=== PATIENT | female | born 2000 | race Caucasian/White ===

== ENCOUNTER → 2019-06-12 | Outpatient (CLI) | payer BC ==
[2019-06-12 16:05] VITALS: BMI 28.5
== END ==
LOC: DBWHC3 12:45
PROVIDERS: ATTEND Family Medicine
DX: K90.0 Celiac disease (principal)
CPT/HCPCS: 97802

== ENCOUNTER → 2019-10-18 | Outpatient (CLI) | payer BC ==
--- NOTE | 2019-10-18 15:30 | US ---
EXAMINATION TYPE: US pelvic complete DATE OF EXAM: 10/18/2019 COMPARISON: NONE CLINICAL HISTORY: N92.0 Excessive and frequent menstruation with reg. Patient states starting nuvarin g and having irregular menses. TECHNIQUE: Transabdominal (TA). Transabdominal sonographic images of the pelvis were acquired. Date of LMP: July 2019, G0 EXAM MEASUREMENTS: Uterus: 7.4 x 5.1 x 3.7 cm Endometrial Stripe: 0.4 cm Right Ovary: 3.1 x 1.5 x 1.5 cm Left Ovary: 3.3 x 1.9 x 1.5 cm 1. Uterus: Anteverted wnl 2. Endometrium: wnl 3. Right Ovary: follicles seen 4. Left Ovary: follicles seen 5. Bilateral Adnexa: no free fluid 6. Posterior cul-de-sac: no free fluid IMPRESSION: Unremarkable pelvic ultrasound. Physiologic follicular changes of the ovaries. No endomet rial thickening.
== END | disposition home or self-care (01) ==
LOC: RADUSWWP 14:55
PROVIDERS: ATTEND Family Medicine
DX: N92.0 Excessive and frequent menstruation with regular cycle (principal)
CPT/HCPCS: 76856

== ENCOUNTER → 2020-04-05 | Outpatient (CLI) | payer BC ==
--- NOTE | 2020-04-05 09:40 | US ---
EXAMINATION TYPE: US abdomen comp/pelvis limited DATE OF EXAM: 04/05/2020 COMPARISON: NONE CLINICAL HISTORY: R10.9 ABD PAIN. Generalized pain. NPO EXAM MEASUREMENTS: Liver Length: 14.5 cm Gallbladder Wall: 0.2 cm CBD: 0.4 cm Spleen: 10.8 cm Right Kidney: 11.3 x 4.7 cm Left Kidney: 11.6 x 3.8 cm Pancreas: Tail obscured by bowel gas Liver: wnl Gallbladder: wnl CBD: wnl Spleen: wnl Right Kidney: No hydronephrosis or masses seen Left Kidney: No hydronephrosis or masses seen Upper IVC: wnl Abd Aorta: No AAA visualized Bladder: Distended, anechoic Bilateral Jets Seen IMPRESSION: 1. Normal abdomen ultrasound
== END | disposition home or self-care (01) ==
LOC: RADUSWWP 08:49
PROVIDERS: ATTEND Family Medicine
DX: R10.9 Unspecified abdominal pain (principal)
CPT/HCPCS: 76700; 76857

== ENCOUNTER 2021-11-11 11:13 | Day surgery (SDC) | payer BC ==
[2021-11-07 11:35] VITALS: BMI 31.7
[~2021-11-11 11:13] MED LIST: LACTATED RINGERS 1,000 ML IV SCH; LIDOCAINE 1% (10MG/ML) FOR IV START INTRADERMA PRN
[2021-11-11 11:44] VITALS: RESP 20; TEMP 97.8
[2021-11-11] MEDS ORDERED: fentaNYL (PF) 50 MCG/ML 2 ML AMP ONE (11:47)
[2021-11-11] MEDS ORDERED: MIDAZOLAM 2 MG/2 ML VIAL ONE (11:47)
[2021-11-11] MEDS ORDERED: PROPOFOL 10 MG/ML 20 ML VIAL IV ONE (11:47)
--- NOTE | 2021-11-11 11:56 | P.PCN ---
Date of Procedure: 11/11/21 Procedure(s) Performed: BRIEF HISTORY: Patient is a 20-year-old, pleasant, white female scheduled for an upper endoscopy as a part of evaluation of positive serology for celiac disease and low iron.. She denies any GI symptoms. PROCEDURE PERFORMED: Esophagogastroduodenoscopy. With biopsy PREOPERATIVE DIAGNOSIS: Positive celiac serology. IV sedation per anesthesia. PROCEDURE: After informed consent was obtained, the patient was brought into the endoscopy unit. IV sedation was administered by Anesthesia under continuous monitoring. Initially the Olympus GIF-140 video endoscope was inserted into the mouth. Esophagus intubated without any difficulty. It was gradually advanced into the stomach and duodenum and carefully examined. The bulb and the second part of the duodenum appeared normal. Biopsies were done from the duodenum to evaluate for celiac disease. The scope at this time was withdrawn to the stomach, adequately insufflated with air, and upon careful examination, mucosa of the antrum, had mild patchy areas of erythema which was biopsied. The body, cardia and the fundus appeared normal. The scope was then withdrawn into the esophagus. The GE junction was located at 39 cm from the incisors. The esophagus appeared normal. There were no erosions or ulcerations seen and the patient tolerated the procedure well. IMPRESSION: 1. Minimal antral gastritis 2. Normal-appearing duodenum status post multiple biopsies to rule out celiac disease. RECOMMENDATIONS: The findings of this examination were discussed with the patient as well as her family. She was advised to follow with the biopsy results and she'll be seen in office in 2 weeks
[2021-11-11 12:14] VITALS: BP 121/65; PULSE 58
== END 2021-11-11 12:34 | disposition home or self-care (01) ==
LOC: ORWHC2ENDO 11:13
PROVIDERS: ATTEND Internal Medicine Gastroenterology
DX: K29.50 Unspecified chronic gastritis without bleeding (principal); K90.0 Celiac disease; J45.909 Unspecified asthma, uncomplicated; Z79.3 Long term (current) use of hormonal contraceptives
CPT/HCPCS: 81025; 88305; 43239; J2250; J3010; J2704

== ENCOUNTER → 2023-07-26 | Outpatient (CLI) | payer BC ==
--- NOTE | 2023-07-27 07:12 | CA ---
Transthoracic Echo Report Name: Loreta Wilkes Age: 22 Gender: F : 2000 Exam Date: 07/26/2023 14:25 Exam Location: [place] [facility] Ht (in): 69 Wt (lb): 230 Ordering Physician: Qasim Trivedi MD Attending/Referring Phys: Shikha GRIFFIN Bedspread Inspector Aviva Hsu RDCS Procedure CPT: Indications: R07.89 chest pain Cardiac Hx: Technical Quality: Fair Contrast 1: Total Dose (mL): Contrast 2: Total Dose (mL): MEASUREMENTS (Male / Female) Normal Values 2D ECHO LV Diastolic Diameter PLAX 4.7 cm 4.2 - 5.9 / 3.9 - 5.3 cm LV Systolic Diameter PLAX 2.7 cm IVS Diastolic Thickness 1.0 cm 0.6 - 1.0 / 0.6 - 0.9 cm LVPW Diastolic Thickness 1.2 cm 0.6 - 1.0 / 0.6 - 0.9 cm LV Relative Wall Thickness 0.5 RV Internal Dim ED PLAX 2.6 cm LA Volume 43.4 cm??? 18 - 58 / 22 - 52 cm??? LA Volume Index 19.0 cm???/m??? 16 - 28 cm???/m??? M-MODE Aortic Root Diameter MM 2.9 cm LA Systolic Diameter MM 4.0 cm LA Ao Ratio MM 1.4 AV Cusp Separation MM 1.8 cm DOPPLER AV Peak Velocity 144.6 cm/s AV Peak Gradient 8.4 mmHg AV Mean Velocity 107.7 cm/s AV Mean Gradient 5.2 mmHg AV Velocity Time Integral 26.2 cm LVOT Peak Velocity 135.2 cm/s LVOT Peak Gradient 7.3 mmHg LVOT Velocity Time Integral 25.5 cm MV Area PHT 3.5 cm??? Mitral E Point Velocity 104.5 cm/s Mitral A Point Velocity 84.1 cm/s Mitral E to A Ratio 1.2 MV Deceleration Time 215.2 ms MV E' Velocity 5.3 cm/s Mitral E to MV E' Ratio 19.6 FINDINGS Left Ventricle Normal Left ventricular size, wall thickness, systolic function with no obvious regional wall motion abnormalities. Normal Left ventricular diastolic filling pattern. Left ventricular ejection fraction is estimated at 55-60 %. Right Ventricle Normal right ventricular size and function. Right Atrium Normal right atrial size. Left Atrium Normal left atrial size. Mitral Valve Structurally normal mitral valve. No mitral stenosis, regurgitation or prolapse. Aortic Valve No aortic valve stenosis or regurgitation. Tricuspid Valve Structurally normal tricuspid valve. Trace to mild tricuspid regurgitation. Pulmonic Valve Pulmonic valve not well visualized. Pericardium No pericardial effusion. Aorta Normal size aortic root and proximal ascending aorta. CONCLUSIONS 1. Normal left ventricular size and systolic function 2. Trace to mild tricuspid regurgitation Previewed by: Dr. Kailash Patino MD (Electronically Signed) Final Date: 27 July 2023 07:11
== END | disposition home or self-care (01) ==
LOC: RADECHMAIN 13:58
PROVIDERS: ATTEND Family Medicine
DX: I34.0 Nonrheumatic mitral (valve) insufficiency (principal); R07.89 Other chest pain
CPT/HCPCS: 93306

== ENCOUNTER 2024-08-23 17:05 | Outpatient (CLI) | payer BC ==
[2024-08-23 18:00] LABS: Appearance,Urine Clear (Clear); Bacteria,Urine Many /hpf; Bilirubin,Urine Negative (Negative); Blood,Urine Negative (Negative); Color,Urine Colorless; Glucose,Urine (UA) Negative (Negative); Ketones,Urine 1+ (Negative); Leukocyte Esterase,Urine Small (Negative); Mucus,Urine Rare /hpf; Nitrite,Urine Negative (Negative); Protein,Urine Negative (Negative); RBC,Urine 2 /hpf (0-5); Squamous Epithelial Cell,Urine 1 /hpf (0-4); Urobilinogen,Urine <2.0 mg/dL (<2.0); WBC,Urine 4 /hpf (0-5)
[2024-08-23 18:07] LABS: Creatinine,Urine Random 60.6 mg/dL; Protein/Creatinine Ratio,Urine 0.182
[2024-08-23 18:23] LABS: Basophils % (A) 0 %; Eosinophils # (A) 0.1 k/uL (0-0.7); Eosinophils % (A) 1 %; HCT 36.2 % (34.0-46.0); HGB 12.7 gm/dL (11.4-16.0); Lymphocytes # (A) 2.2 k/uL (1.0-4.8); Lymphocytes % (A) 17 %; MCV 85.9 fL (80.0-100.0); Mean Platelet Volume 8.7; Monocytes # (A) 0.6 k/uL (0-1.0); Monocytes % (A) 5 %; Neutrophils # (A) 9.7 k/uL (1.3-7.7); Neutrophils % (A) 75 %; Platelet Count 217 k/uL (150-450); RBC 4.22 m/uL (3.80-5.40); RDW 14.7 % (11.5-15.5); WBC 12.9 k/uL (3.8-10.6)
[2024-08-23 18:30] LABS: ALT 13 U/L (4-34); AST 14 U/L (14-36); African American GFR (CKD) >90 (>60 ml/min/1.73 sqM); Blood Urea Nitrogen 5 mg/dL (7-17); LDH 176 U/L (120-246); Non-African American GFR(CKD) >90 (>60 ml/min/1.73 sqM); Uric Acid 3.6 mg/dL (3.7-7.4)
[2024-08-23 19:51] VITALS: BP 167/83; PULSE 100; RESP 17; TEMP 99
--- NOTE | 2024-09-15 23:07 | P.MSEPDOC ---
Presenting Problems - Arrival Data Date of Arrival on Unit: 08/23/24 Time of Arrival on Unit: 17:05 Mode of Transport: Ambulatory - Complaint OB-Reason for Admission/Chief Complaint: PIH Comment: pt presents to triage with written orders from Dr. Ferreira for PIH workup, nst, and serial bp's Medical History - Information : 1 Para: 0 Term: 0 : 0 Abortions: Spontaneous or Elective: 0 Number of Living Children: 0 - Gestational Age Gestational Age by JENN (wks/days): 32 Weeks and 0 Days Review of Systems - Review of Systems Constitutional: No problems Breast: No problems ENT: No problems Cardiovascular: No problems Respiratory: No problems Gastrointestinal: No problems Genitourinary: No problems Musculoskeletal: No problems Neurological: No problems Skin: No problems Vital Signs - Temperature Temperature: 99.0 F Temperature Source: Temporal Artery Scan - Pulse Right Brachial Pulse Rate: 100 Pulse Assessment Method: Automatic Cuff - Respirations Respiratory Rate: 17 Oxygen Delivery Method: Room Air O2 Sat by Pulse Oximetry: 97 - Blood Pressure Right Arm Blood Pressure: 167/83 Blood Pressure Mean: 111 Blood Pressure Source: Automatic Cuff Medical Screen Scoring - Assessment - Baby A Baseline FHR: 145 Heart Rate - NICHD Category: Category I (Normal) NST: Reactive Physician Notification - Notification Comment Comment: [facility] labs obtained, all within normal, ua sent for culture, bp's down to 118/71 by discharge, reactive nst, script for labetolol 100 mg bid [facility], pt has another appt in office on 09/06 Maternal Triage Index - Maternal Triage Index Presenting for scheduled procedure w/no complaint: No - Stat/Priority 1 Stat Priority 1: No - Urgent/Priority 2 Urgent Priority 2: Yes Provider Notified: Liliana Ferreira Provider Notified Time: 18:30 Criteria Met for Priority 2: pt presents to triage with written orders from Dr. Ferreira for PIH workup, nst, and serial bp's due to elevated bp's in office Disposition - Disposition OB Disposition: Triage, Discharge to home, Written follow up instructions reviewed Discharge Date: 08/23/24 Discharge Time: 18:50 I agree with the RN Medical Screening Exam: Yes Case reviewed; plan agreed upon as documented in EMR&OBIX.: Yes Comments: I have neither seen nor examined this patient Diagnosis: GESTATIONAL HTN W/O SIGNIFICANT PROTEINURIA, THIRD TRIMESTER
== END 2024-08-23 18:50 | disposition home or self-care (01) ==
LOC: FBPOP 17:05
PROVIDERS: ATTEND Obstetrics & Gynecology
DX: O13.3 Gestational [pregnancy-induced] hypertension without significant proteinuria, third trimester (principal); Z3A.32 32 weeks gestation of pregnancy; Z91.018 Allergy to other foods; Z88.8 Allergy status to other drugs, medicaments and biological substances
CPT/HCPCS: 36415; 59025; 81001; 82565; 82570; 83615; 84156; 84450; 84460; 84520; 84550; 85025; 87086

== ENCOUNTER 2024-09-08 13:53 | Outpatient (CLI) | payer BC ==
[2024-09-08 14:30] LABS: Appearance,Urine Clear (Clear); Basophils % (A) 0 %; Bilirubin,Urine Negative (Negative); Blood,Urine Negative (Negative); Color,Urine Colorless; Eosinophils # (A) 0.2 k/uL (0-0.7); Eosinophils % (A) 2 %; Glucose,Urine (UA) Negative (Negative); HCT 38.7 % (34.0-46.0); Ketones,Urine Negative (Negative); Leukocyte Esterase,Urine Negative (Negative); Lymphocytes # (A) 1.6 k/uL (1.0-4.8); Lymphocytes % (A) 16 %; MCH 29.2 pg (25.0-35.0); MCHC 33.6 g/dL (31.0-37.0); MCV 86.9 fL (80.0-100.0); Mean Platelet Volume 8.5; Monocytes # (A) 0.4 k/uL (0-1.0); Monocytes % (A) 4 %; Neutrophils # (A) 7.6 k/uL (1.3-7.7); Neutrophils % (A) 76 %; Nitrite,Urine Negative (Negative); PH, Urine 6.5 (5.0-8.0); Platelet Count 245 k/uL (150-450); Protein,Urine Negative (Negative); RBC 4.45 m/uL (3.80-5.40); RDW 14.5 % (11.5-15.5); Specific Gravity,Urine 1.009 (1.001-1.035); Urobilinogen,Urine <2.0 mg/dL (<2.0)
[2024-09-08 14:54] LABS: ALT 14 U/L (4-34); African American GFR (CKD) >90 (>60 ml/min/1.73 sqM); Blood Urea Nitrogen 7 mg/dL (7-17); Non-African American GFR(CKD) >90 (>60 ml/min/1.73 sqM); Uric Acid 3.9 mg/dL (3.7-7.4)
[2024-09-08 14:55] LABS: Protein/Creatinine Ratio,Urine 0.196
[2024-09-08 15:11] LABS: AST 35 U/L (14-36)
[2024-09-08 15:12] LABS: LDH 292 U/L (120-246)
[2024-09-08 15:42] VITALS: BP 135/74; PULSE 109; RESP 14; TEMP 98.1
--- NOTE | 2024-09-15 23:22 | P.MSEPDOC ---
Presenting Problems - Arrival Data Date of Arrival on Unit: 09/08/24 Time of Arrival on Unit: 13:53 Mode of Transport: Ambulatory - Complaint OB-Reason for Admission/Chief Complaint: PIH Medical History - Information : 1 Para: 0 Term: 0 : 0 Abortions: Spontaneous or Elective: 0 Number of Living Children: 0 - Gestational Age Gestational Age by JENN (wks/days): 34 Weeks and 2 Days Review of Systems - Review of Systems Constitutional: No problems Breast: No problems ENT: No problems Cardiovascular: No problems Respiratory: No problems Gastrointestinal: No problems Genitourinary: No problems Musculoskeletal: No problems Neurological: No problems Skin: No problems Vital Signs - Temperature Temperature: 98.1 F Temperature Source: Temporal Artery Scan - Pulse Right Brachial Pulse Rate: 109 Pulse Assessment Method: Automatic Cuff - Respirations Respiratory Rate: 14 Oxygen Delivery Method: Room Air - Blood Pressure Right Arm Blood Pressure: 135/74 Blood Pressure Mean: 94 Blood Pressure Source: Automatic Cuff Medical Screen Scoring - Assessment - Baby A Baseline FHR: 140 Heart Rate - NICHD Category: Category I (Normal) NST: Reactive Physician Notification - Physician Notified Physician Notified Date: 09/08/24 Physician Notified Time: 15:10 Physician: Liliana Ferreira Order Received: Yes - Notification Comment Comment: d/c home Maternal Triage Index - Maternal Triage Index Presenting for scheduled procedure w/no complaint: No - Stat/Priority 1 Stat Priority 1: No - Urgent/Priority 2 Urgent Priority 2: No - Prompt/Priority 3 Prompt Priority 3: No - Non-Urgent/Priority 4 Non-Urgent Priority 4: Yes Criteria Met for Priority 4: discomfort of Disposition - Disposition OB Disposition: Discharge to home Discharge Date: 09/08/24 Discharge Time: 15:20 I agree with the RN Medical Screening Exam: Yes Physician's MSE Comment: I have neither seen nor examined this patient Case reviewed; plan agreed upon as documented in EMR&OBIX.: Yes Diagnosis: OTHER SPECIFIED COMPLICATIONS OF LABOR AND DELIVERY
== END 2024-09-08 15:21 | disposition home or self-care (01) ==
LOC: FBPOP 13:53
PROVIDERS: ATTEND Obstetrics & Gynecology
DX: O13.3 Gestational [pregnancy-induced] hypertension without significant proteinuria, third trimester (principal); Z3A.34 34 weeks gestation of pregnancy; Z91.048 Other nonmedicinal substance allergy status; Z88.8 Allergy status to other drugs, medicaments and biological substances
CPT/HCPCS: 36415; 59025; 81003; 82565; 82570; 83615; 84156; 84450; 84460; 84520; 84550; 85025; 99215

== ENCOUNTER 2024-10-11 15:50 | Inpatient (IN) | payer BC ==
--- NOTE | 2024-10-11 16:37 | P.HPOB ---
History of Present Illness H&P Date: 10/11/24 Chief Complaint: medical induction of labor Ms. Rosenbaum is a 23 year old at 39 weeks gestation with EDC of 10/18/2024 who presents for medical induction of labor for chronic hypertension on 200mg of Labetalol BID. The patient also has a past medical history of mild intermittent asthma for which she rarely uses an inhaler. The fetus is estimated at 54%ile based on a 32 week growth US. surveillance has been reassuring. work-up: blood type O positive, antibody screen negatibe, rubella immune, VDRL non-reactive, HBsAg negative, HIV negative, gonorrhea negative, chlamydia negative, 1 hour GTT wnl, GBS negative. s/p flu and TDap vaccines. Past Medical History Past Medical History: Asthma, GERD/Reflux Additional Past Medical History / Comment(s): CELIAC DISEASE, anemia, History of Any Multi-Drug Resistant Organisms: None Reported Past Surgical History: No Surgical Hx Reported Past Anesthesia/Blood Transfusion Reactions: No Reported Reaction Smoking Status: Never smoker - Past Family History Mother Family Medical History: No Reported History Medications and Allergies Home Medications Medication Instructions Recorded Confirmed Type Aspirin [[place] Aspirin EC] 81 mg PO DAILY 09/08/24 10/11/24 History Labetalol [Trandate] 100 mg PO BID 09/08/24 10/11/24 History Vit No.179/Iron/Folic 1 each PO DAILY 09/08/24 10/11/24 History [ Tablet] Allergies Allergy/AdvReac Type Severity Reaction Status Date / Time adhesive tape AdvReac Rash/Hives Verified 10/11/24 16:22 ferumoxytol [From Feraheme] AdvReac Cough Verified 10/11/24 16:22 gluten AdvReac Rash/Hives Verified 10/11/24 16:22 Exam Intake and Output 10/11/24 10/11/24 10/11/24 06:59 14:59 22:59 Other: Weight 135.171 kg Focused physical exam is performed. This is a healthy-appearing in no apparent distress. Breathing is non-labored. Abdomen is gravid and non-tender. Cervical exam is closed/long/high. Sterile speculum is used to place a cooks catheter. Extremities non-tender and non-edematous. heart tones are reactive and reassuring on NST. Assessment and Plan Assessment: 23 year old at 39 weeks gestation with cHTN presenting for medical induction Plan: Admit, clear liquid diet, cooks catheter for 12 hours with low dose pitocin, continuous EFM and tocometer.
[2024-10-11] MEDS: LACTATED RINGERS 1,000 ML IV SCH (17:30)
[2024-10-11] MEDS ORDERED: OXYTOCIN 10 UNIT/ML 1 ML VIAL IM PRN (17:39)
[2024-10-11] MEDS ORDERED: TERBUTALINE 1 MG/ML VIAL SQ PRN (17:39)
[2024-10-11] MEDS ORDERED: METHYLERGONOVINE 0.2 MG/ML 1 ML AMP IM PRN (17:39)
[2024-10-11] MEDS ORDERED: miSOPROStoL 200 MCG TAB RECTAL PRN (17:39)
[2024-10-11] MEDS ORDERED: miSOPROStoL 200 MCG TAB PO PRN (17:39)
[2024-10-11] MEDS ORDERED: TRANEXAMIC 1,000 MG/100ML-NACL 1,000 MG in EMPTY BAG 1 BAG IV PRN (17:39)
[2024-10-11] MEDS ORDERED: LIDOCAINE 0.5% (PF) 5 MG/ML (50 ML SDV) SQ PRN (17:39)
[2024-10-11] MEDS ORDERED: CARBOPROST TROMETHAMINE 250 MCG/ML 1 ML AMP IM PRN (17:39)
[2024-10-11] MEDS ORDERED: OXYTOCIN 30 UNITS/500 ML NS 30 UNIT in SALINE 1 500ML.BAG IV SCH (17:45)
[2024-10-11] MEDS: OXYTOCIN 30 UNITS/500 ML NS 30 UNIT in SALINE 1 500ML.BAG IV SCH (17:50)
[2024-10-11 18:24] LABS: Basophils % (A) 0 %; Eosinophils # (A) 0.1 k/uL (0-0.7); Eosinophils % (A) 1 %; HGB 12.4 gm/dL (11.4-16.0); Lymphocytes # (A) 1.6 k/uL (1.0-4.8); Lymphocytes % (A) 17 %; MCH 28.6 pg (25.0-35.0); MCHC 34.6 g/dL (31.0-37.0); MCV 82.9 fL (80.0-100.0); Mean Platelet Volume 9.1; Monocytes # (A) 0.5 k/uL (0-1.0); Monocytes % (A) 5 %; Neutrophils % (A) 74 %; Platelet Count 229 k/uL (150-450); RBC 4.34 m/uL (3.80-5.40); RDW 15.1 % (11.5-15.5); WBC 9.4 k/uL (3.8-10.6)
[2024-10-11 18:34] LABS: ALT 12 U/L (4-34); AST 17 U/L (14-36); African American GFR (CKD) >90 (>60 ml/min/1.73 sqM); Blood Urea Nitrogen 6 mg/dL (7-17); LDH 193 U/L (120-246); Non-African American GFR(CKD) >90 (>60 ml/min/1.73 sqM); Uric Acid 4.6 mg/dL (3.7-7.4)
[2024-10-11 18:39] LABS: Appearance,Urine Clear (Clear); Bacteria,Urine Rare /hpf; Bilirubin,Urine Negative (Negative); Blood,Urine Large (Negative); Color,Urine Yellow; Glucose,Urine (UA) Negative (Negative); Ketones,Urine Negative (Negative); Leukocyte Esterase,Urine Negative (Negative); Mucus,Urine Few /hpf; Nitrite,Urine Negative (Negative); Protein,Urine Trace (Negative); RBC,Urine >182 /hpf (0-5); Specific Gravity,Urine 1.024 (1.001-1.035); Squamous Epithelial Cell,Urine 3 /hpf (0-4); Urobilinogen,Urine <2.0 mg/dL (<2.0); WBC,Urine 2 /hpf (0-5)
[2024-10-11 18:43] LABS: Creatinine,Urine Random 180.1 mg/dL; Protein/Creatinine Ratio,Urine 0.089
[2024-10-12] MEDS: NALBUPHINE 10 MG/ML (10 ML MDV) IV PRN (09:33)
[2024-10-12] MEDS ORDERED: SODIUM CHLORIDE 0.9% 250 ML BAG ONE (10:40)
[2024-10-12] MEDS ORDERED: ROPIVACAINE 5 MG/ML 30 ML VIAL ONE (10:40)
[2024-10-12] MEDS ORDERED: fentaNYL (PF) 50 MCG/ML 5 ML AMP ONE (10:40)
[2024-10-12] MEDS ORDERED: CARBOPROST TROMETHAMINE 250 MCG/ML 1 ML AMP IM PRN (19:42)
[2024-10-12] MEDS ORDERED: miSOPROStoL 200 MCG TAB PO PRN (19:42)
[2024-10-12] MEDS ORDERED: TRANEXAMIC 1,000 MG/100ML-NACL 1,000 MG in EMPTY BAG 1 BAG IV PRN (19:42)
[2024-10-12] MEDS ORDERED: METHYLERGONOVINE 0.2 MG/ML 1 ML AMP IM PRN (19:42)
[2024-10-12] MEDS ORDERED: OXYTOCIN 10 UNIT/ML 1 ML VIAL IM PRN (19:42)
[2024-10-12] MEDS: CITRIC ACID-SODIUM CITRATE 15 ML CUP PO ONE (20:03)
[2024-10-12] MEDS: ceFAZolin 3 GM in SODIUM CHLORIDE 0.9% 100 ML IVPB ONE (20:09)
[2024-10-12] MEDS ORDERED: DEXAMETHASONE SOD PHOSPHATE 4 MG/ML 1 ML VIAL ONE (20:11)
[2024-10-12] MEDS ORDERED: OXYTOCIN 30 UNITS/500 ML NS BAG IV ONE (20:11)
[2024-10-12] MEDS ORDERED: MIDAZOLAM 2 MG/2 ML VIAL ONE (20:11)
[2024-10-12] MEDS ORDERED: LIDOCAINE HCL/PF 20 MG/ML 10 ML AMP ONE (20:11)
[2024-10-12] MEDS ORDERED: .MORPHINE SULFATE (INJ) 10 MG/ML SYRINGE ONE (20:11)
[2024-10-12] MEDS ORDERED: KETOROLAC 15 MG/ML 1 ML VIAL ONE (20:11)
[2024-10-12] MEDS ORDERED: ONDANSETRON 4 MG/2 ML VIAL ONE (20:11)
[2024-10-12] MEDS ORDERED: diphenhydrAMINE 25 MG CAP PO PRN (21:29)
[2024-10-12] MEDS ORDERED: diphenhydrAMINE 50 MG/ML 1 ML VIAL IVP PRN ×2 (21:29)
[2024-10-12] MEDS ORDERED: ZOLPIDEM 5 MG TAB PO PRN (21:29)
[2024-10-12] MEDS ORDERED: diphenhydrAMINE 50 MG CAP PO PRN (21:29)
[2024-10-12] MEDS ORDERED: ONDANSETRON 4 MG/2 ML VIAL IVP PRN (21:29)
[2024-10-12] MEDS ORDERED: SIMETHICONE 80 MG CHEWABLE PO PRN (21:29)
[2024-10-12] MEDS ORDERED: METOCLOPRAMIDE 5 MG/ML 2 ML VIAL IVP PRN (21:29)
[2024-10-12] MEDS ORDERED: NALOXONE 0.4 MG/ML 1 ML VIAL IV PRN (21:29)
--- NOTE | 2024-10-12 21:30 | P.OP ---
Date of Procedure: 10/12/24 Preoperative Diagnosis: 1. Term IUP at 39 weeks 2. Chronic Hypertension 3. Arrest of dilation 4. Category II heart tones Postoperative Diagnosis: 1. Term IUP at 39 weeks 2. Chronic Hypertension 3. Arrest of dilation 4. Category II heart tones 5. hemorrhage Procedure(s) Performed: Primary Lower Transverse Section Implants: None Anesthesia: epidural Surgeon: Liliana Ferreira Dross Skimmer #1: Cherry Tena Estimated Blood Loss (ml): 2,373 IV fluids (ml): 1,000 Urine output (ml): 300 (clear yellow) Pathology: none sent Condition: stable Disposition: floor Indications for Procedure: Ms. Rosenbaum is a 23 year old at 39 weeks gestation who presented for medical induction of labor for chronic hypertension on antihypertensives. A cooks catheter was inserted with low-dose oxytocin and fell out after approximately 9 hours. Pitocin was titrated per protocol and AROM was undertaken at 830 revealing clear amniotic fluid. The patient progressed to 6 centimeters. She then did not make any further cervical dilation over the next 8-9 hours. The fetus also had category II heart tones at times, which usually resolved with decreasing the pitocin or position changes. section was recommended for maternal and well-being. The risks, benefits, and alternatives to section were discussed with the patient including risk of bleeding, infection, damage to surrounding structures including bladder/bowels/ureters, and post-operative VTE. The patient understands these risks and desires to proceed with section. Operative Findings: Viable female infant in cephalic presentation with caput noted. Apgars 9/9. Weight 8 pounds and 10 ounces (3900 grams). Normal uterus, fallopian tubes, and ovaries. Description of Procedure: The patient was taken back to the operating room where spinal anesthesia was found to be adequate. Three grams of Ancef and five hundred milligrams of Azithromycin were given for infection prophylaxis. Vaginal preparation was done. She was prepared and draped in the dorsal supine position with a leftward tilt. A Pfannenstiel skin incision was made with the scalpel. The incision was carried down to the fascia with a bovie. The fascia was incised and extended laterally with Yusuf scissors. The superior aspect of the fascia was grasped with the Evonne clamps. The underlying rectus muscle was dissected off sharply with Yusuf scissors. In a similar fashion, the inferior aspect of the fascia was elevated with Evonne clamps and the rectus muscle and pyramidalis were dissected off. Excellent hemostasis was achieved with the bovie. The rectus muscle was in the midline down to the level of the pubic symphysis. Pre-periton eal fatty tissue was bluntly dissected to expose the peritoneum. The peritoneum was found to be free of adherent bowel and entered sharply with Yusuf scissors. The peritoneal incision was extended superiorly and inferiorly to the bladder reflection with good visualization of the bladder. The bladder blade was inserted and vesicouterine peritoneum was identified. Intraabdominal survey revealed scant, clear peritoneal fluid and the thinned-out lower uterine segment. The bladder blade was positioned to keep the bladder out of the operative field. The lower uterine segment was incised with a scalpel. The uterine incision was extended bluntly with lateral and upward traction. The fetus was in cephalic presentation. The head was elevated out of the pelvis with special attention paid to avoid using the uterine incision as a fulcrum. Gentle fundal pressure was applied once the head was brought into the incision. The infant was delivered with no difficulty and was noted to be crying spontaneous ly. The mouth and nose were suctioned with a bulb. The cord was clamped and cut. The was handed off to the head start assistant teacher. IV oxytocin was initiated to facilitate uterine contractions. The placenta was delivered intact with manual massage of uterine fundus. The uterus was then exteriorized and the inside of the uterus was gently wiped with a lap sponge to assure complete removal of placental membranes. The uterine incision was closed with 0-Vicryl suture in a running locked fashion. A second imbricating layer was placed with 0-Vicryl. The ovaries and tubes were found to be normal. The uterus, tubes, and ovaries were then gently returned to the abdominal cavity. The abdomen was copiously suction irrigated. Surgicel powder was applied to the uterine incision for bleeding prophylaxis. The uterine incision was reinspected and excellent hemostasis was noted. The fascial layer was closed with a 0-Vicryl suture. The subcutaneous tissue was reapproximated with 2-0 Plain Gut. The skin was closed with 4-0 Monocryl in a subcuticular fashion.The patient tolerated the procedure well. All the counts were correct times two. The patient was taken to the recovery room in a stable condition. A physician community program assistant was utilized for the entire procedure due to the need for tissue retraction, dissection of vital structures, prevention and management of blood loss, and reduction in overall operative and anesthesia time as is the standard of care.
[2024-10-12 21:53] LABS: Basophils % (A) 0 %; Eosinophils # (A) 0.1 k/uL (0-0.7); Eosinophils % (A) 1 %; HCT 32.2 % (34.0-46.0); HGB 10.9 gm/dL (11.4-16.0); Lymphocytes # (A) 1.1 k/uL (1.0-4.8); Lymphocytes % (A) 5 %; MCH 28.2 pg (25.0-35.0); MCHC 33.8 g/dL (31.0-37.0); MCV 83.2 fL (80.0-100.0); Mean Platelet Volume 9.1; Monocytes # (A) 0.7 k/uL (0-1.0); Monocytes % (A) 3 %; Neutrophils # (A) 18.3 k/uL (1.3-7.7); Neutrophils % (A) 90 %; Platelet Count 234 k/uL (150-450); RBC 3.86 m/uL (3.80-5.40); RDW 15.4 % (11.5-15.5); WBC 20.4 k/uL (3.8-10.6)
[2024-10-12] MEDS: ACETAMINOPHEN IV (For NPO) 1,000 MG in EMPTY BAG 1 BAG IVPB STA (22:45)
[2024-10-12] MEDS: LACTATED RINGERS 1,000 ML IV SCH (22:48)
[2024-10-12] MEDS: ACETAMINOPHEN TAB 500 MG TAB PO SCH (22:48)
[2024-10-12] MEDS: AZITHROMYCIN 500 MG in SODIUM CHLORIDE 0.9% 250 ML IVPB STA (22:50)
[2024-10-13] MEDS: KETOROLAC 15 MG/ML 1 ML VIAL IVP SCH (02:27)
[2024-10-13 02:35] LABS: Basophils % (A) 0 %; Eosinophils % (A) 0 %; HCT 32.3 % (34.0-46.0); HGB 10.9 gm/dL (11.4-16.0); Lymphocytes # (A) 1.1 k/uL (1.0-4.8); Lymphocytes % (A) 6 %; MCH 28.5 pg (25.0-35.0); MCHC 33.8 g/dL (31.0-37.0); MCV 84.3 fL (80.0-100.0); Mean Platelet Volume 9.6; Monocytes # (A) 0.5 k/uL (0-1.0); Monocytes % (A) 3 %; Neutrophils # (A) 15.6 k/uL (1.3-7.7); Neutrophils % (A) 90 %; Platelet Count 229 k/uL (150-450); RBC 3.83 m/uL (3.80-5.40); RDW 15.4 % (11.5-15.5); WBC 17.4 k/uL (3.8-10.6)
--- NOTE | 2024-10-13 07:08 | P.PNOBGPC ---
Subjective - Subjective Principal diagnosis: s/p primary section Interval history: The patient is doing well this morning and had no acute events overnight. She has no complaints this morning. She reports minimal lochia, ambulating, and eating/drinking without nausea or vomiting. Hughes catheter just came out, awaiting void. She is breast feeding her without difficulty. She denies chest pain, shortness of breathing, fevers, or chills overnight. She denies pain or swelling in the legs. Patient reports: Reports appetite normal, Reports voiding normally, Reports pain well controlled, Reports ambulating normally : doing well, nursing well Objective - Vital Signs Latest vital signs: Vital Signs Temp Pulse Resp BP Pulse Ox 10/13/24 06:30 97.6 F 87 16 121/69 95 10/13/24 03:02 98.6 F 77 16 128/68 97 10/13/24 00:00 98.7 F 77 16 114/53 97 10/12/24 23:15 78 16 112/62 96 10/12/24 23:00 90 16 106/60 97 10/12/24 22:45 84 16 117/67 96 10/12/24 22:30 77 16 114/53 96 10/12/24 22:15 80 18 119/63 97 10/12/24 22:00 90 18 120/70 98 10/12/24 21:45 93 18 117/72 97 10/12/24 21:30 90 18 125/75 99 10/12/24 21:15 98.4 F 96 18 141/74 99 Intake and Output 10/12/24 10/13/24 10/13/24 22:59 06:59 14:59 Output Total 2673 834 Balance -2673 -834 Output: Urine 300 700 Uretheral (Hughes) 300 Output, Quantitative 2373 134 Blood Loss Other: Voiding Method Indwelling Catheter - Exam Extremities: Present: normal Abdomen: Present: normal appearance, soft Incision: Present: normal, dry, dressed Uterus: Present: normal, firm - Labs Labs: Abnormal Lab Results - Last 24 Hours (Table) 10/12/24 10/13/24 Range/Units 21:40 02:16 WBC 20.4 H 17.4 H (3.8-10.6) k/uL Hgb 10.9 L 10.9 L (11.4-16.0) gm/dL Hct 32.2 L 32.3 L (34.0-46.0) % Neutrophils # 18.3 H 15.6 H (1.3-7.7) k/uL Assessment and Plan Assessment: 23 year old now POD#1 s/p primary section for arrest of dilation Plan: 1. Post-operative. Patient meeting post-operative milestones appropriately. Continue to monitor. 2. Acute blood loss anemia. 2300 QBL. Vital signs stable. Hgb 12.6 > 10. Patient asymptomatic. PO iron qDay. 3. Viable female at bedside. Doing well, breast feeding. Dispo: Anticipate discharge home on POD#2.
[2024-10-13] MEDS: SENNOSIDES-DOCUSATE SODIUM 1 EACH TAB PO SCH (08:15)
--- NOTE | 2024-10-13 08:57 | P.PN ---
Progress Note - Text Progress Note Date: 10/13/24 (657) Anesthesia Postop day [1] Subjective: Status Post [ section] with Duramorph. Patient seen and examined. [Doing well without complaint]. VAS [0]. No nausea vomiting or pruritus. [Denies fever]. [Gross lower extremity strength intact]. Without apparent anesthetic complications. Objective: Vital signs reviewed Heart: [Regular Rate] Lungs: [Good chest excursion] Abdomen: [Appears nondistended] Assessment: Status post [ section] with Duramorph postop day 1 Plan: 1. Continue current care with your medical management. Anticipated end to the duration of the Duramorph around surgery time today. You may see increased pain needs around this time. 2. This note was dictated using [employer] software. Please be advised there is a potential for misspellings or errors in railway switchman.
[2024-10-13] MEDS: FERROUS SULFATE 325 MG TAB PO SCH (13:19)
[2024-10-13 15:57] VITALS: RESP 16
[2024-10-14] MEDS: IBUPROFEN 800 MG TAB PO SCH (05:03)
[2024-10-14 06:55] LABS: Basophils # (A) 0.1 k/uL (0-0.2); Basophils % (A) 1 %; Eosinophils # (A) 0.2 k/uL (0-0.7); Eosinophils % (A) 2 %; HGB 10.2 gm/dL (11.4-16.0); Lymphocytes # (A) 2.6 k/uL (1.0-4.8); Lymphocytes % (A) 22 %; MCH 28.5 pg (25.0-35.0); MCHC 34.1 g/dL (31.0-37.0); MCV 83.6 fL (80.0-100.0); Mean Platelet Volume 8.8; Monocytes # (A) 0.7 k/uL (0-1.0); Monocytes % (A) 6 %; Neutrophils # (A) 7.8 k/uL (1.3-7.7); Neutrophils % (A) 68 %; Platelet Count 237 k/uL (150-450); RBC 3.59 m/uL (3.80-5.40); RDW 15.6 % (11.5-15.5); WBC 11.5 k/uL (3.8-10.6)
--- NOTE | 2024-10-14 11:57 | P.DS ---
Providers Date of admission: 10/11/24 15:50 Expected date of discharge: 10/14/24 Attending physician: Liliana Ferreira MD Primary care physician: Qasim Trivedi - Discharge Diagnosis(es) (1) S/P primary low transverse Current Visit: Yes Status: Acute Hospital Course: Patient is a 23-year-old 1 para 0 admitted at 39 weeks by good dating parameters. She is admitted for induction secondary to chronic hypertension stable on labetalol 200 mg twice daily. Her had otherwise been uncomplicated and group B strep status was negative. On labor delivery, all signs were reassuring with a category 1 heart rate tracing. She had a Cook's catheter placed for cervical ripening which ultimately fell out. She had Pitocin augmentation started and underwent artificial rupture of membranes. She progressed to approximately 6 cm but made no change thereafter for approximately 8 to 9 hours. She was taken to the operating room where she underwent primary low-transverse section in an uncomplicated fashion and was delivered of a viable 8 pound 10 ounce baby girl with Apgars of 9 at 1 minute and 9 at 5 minutes. She did experience a hemorrhage which was managed in standard fashion and hemoglobins have remained entirely stable as have vital signs throughout. She was deemed stable for discharge on and postoperative day #2 and was discharged home to follow-up in the office in 2 weeks for an incision check in 6 weeks routinely. Discharge instructions included calling for any significantly increased bleeding or foul-smelling lochia, significantly increased fever abdominal pain, perineal complaints, breast complaints, incisional complaints, or anything else that concerned her. She was additionally instructed to have nothing in the vagina for at least 6 weeks time to include intercourse and to abstain from any heavy lifting over the same period of time. She was lastly instructed to do no driving until off of all pain medications or 2 weeks time, whichever came first. She understood her instructions and agrees to follow-up as noted above. Discharge medications included continued vitamins as she has opted to breast-feed. She was otherwise to use [id number] analgesic pain medications. She was provided a prescription for oxycodone 5 mg, 1-2 p.o. every 6 hours as needed pain, #20 dispensed with no refills. Maternal blood type is O+ and rubella status is immune. Discharge hemoglobin and hematocrit were 10.2 and 30.0 respectively. Procedures: 1. Cook's catheter cervical ripening #2. Pitocin augmentation #3. Artificial rupture of membranes #4. Primary low-transverse section #5. Management of hemorrhage Patient Condition at Discharge: Stable Plan - Discharge Summary New Discharge Prescriptions: No Action Aspirin [[place] Aspirin EC] 81 mg PO DAILY Labetalol [Trandate] 200 mg PO BID Vit No.179/Iron/Folic [ Tablet] 1 each PO DAILY Discharge Medication List Aspirin [[place] Aspirin EC] 81 mg PO DAILY 09/08/24 [History] Labetalol [Trandate] 200 mg PO BID 09/08/24 [History] Vit No.179/Iron/Folic [ Tablet] 1 each PO DAILY 09/08/24 [History] Follow up Appointment(s)/Referral(s): Liliana Ferreira MD [STAFF PHYSICIAN] - 1 Week (11/23/2024 8:45am ) Discharge Disposition: HOME SELF-CARE
[2024-10-14 16:52] VITALS: BP 122/69; PULSE 92; TEMP 97.8
== END 2024-10-14 17:40 | disposition home or self-care (01) | DRG 787 ==
LOC: 4FBP 15:50
PROVIDERS: ADMIT Obstetrics & Gynecology; ATTEND Obstetrics & Gynecology
PROC: 3E033VJ Introduction of Other Hormone into Peripheral Vein, Percutaneous Approach (ICD-10-PCS; 2024-10-12)
PROC: 10907ZC Drainage of Amniotic Fluid, Therapeutic from Products of Conception, Via Natural or Artificial Opening (ICD-10-PCS; 2024-10-12)
PROC: 3E033VJ Introduction of Other Hormone into Peripheral Vein, Percutaneous Approach (ICD-10-PCS; 2024-10-12)
PROC: 10D00Z1 Extraction of Products of Conception, Low, Open Approach (ICD-10-PCS; principal; 2024-10-12 20:11)
DX: O10.92 Unspecified pre-existing hypertension complicating childbirth (principal); D62 Acute posthemorrhagic anemia; O72.1 Other immediate postpartum hemorrhage; O99.52 Diseases of the respiratory system complicating childbirth; O62.0 Primary inadequate contractions; J45.20 Mild intermittent asthma, uncomplicated; Z37.0 Single live birth; Z3A.39 39 weeks gestation of pregnancy; Z79.82 Long term (current) use of aspirin
CPT/HCPCS: 81001; 82565; 82570; 83615; 84156; 84450; 84460; 84520; 84550; 85025; 86850; 86900; 86901

== ENCOUNTER → 2024-12-20 | Outpatient (CLI) | payer BC ==
--- NOTE | 2024-12-20 09:16 | US ---
EXAMINATION TYPE: US liver DATE OF EXAM: 12/20/2024 COMPARISON: 04/05/20 CLINICAL INDICATION: Female, 24 years old with history of R74.8 Abnormal liver enzymes; abnormal live r enzymes TECHNIQUE: Grayscale and color Doppler imaging of the right upper quadrant was performed. FINDINGS: EXAM MEASUREMENTS: Liver Length: 16.1 cm Gallbladder Wall: 0.2 cm CBD: 0.38 cm Right Kidney: 11.2 x 5.2 x 4.5 cm PROCUREMENT FORESTER NOTES: Pancreas: Obscured by bowel gas Liver: wnl, no solid masses, dilated ducts or cysts. Gallbladder: wnl Evidence for sonographic [place]'s sign: No CBD: wnl Right Kidney: wnl IMPRESSION: No evidence for acute process. [facility], , 12/20/2024 9:13 AM
== END | disposition home or self-care (01) ==
LOC: RADUSWWP 08:14
PROVIDERS: ATTEND Family Medicine
DX: R74.8 Abnormal levels of other serum enzymes (principal)
CPT/HCPCS: 76705